=== PATIENT | female | born 1955 | race African-American/Black ===

== ENCOUNTER 2023-12-14 09:12 | Emergency (ER) | payer BC ==
[~2023-12-14] VITALS: Ht 170.2 cm; Wt 62.6 kg
[2023-12-14] MEDS ORDERED: HYDR12.55 PO (10:07)
[2023-12-14] MEDS ORDERED: AMLO-213 PO (10:07)
[2023-12-14 10:30] LABS: BASOPHILS % (AUTO) 0.5 % (0.0-2.0); EOSINOPHILS # (AUTO) 0.1 K/uL (0.0-0.7); EOSINOPHILS % (AUTO) 1.3 % (0.0-6.0); HEMATOCRIT 43 % (33-45); HEMOGLOBIN 14.2 g/dL (11.5-14.8); LYMPHOCYTES # (AUTO) 1.9 K/uL (0.8-4.8); LYMPHOCYTES % (AUTO) 34.7 % (20.0-44.0); MEAN CORPUSCULAR HEMOGLOBIN 30 PG (26.0-33.0); MEAN CORPUSCULAR HGB CONC 33 g/dl (31.0-36.0); MEAN CORPUSCULAR VOLUME 90 fL (82-100); MONOCYTES # (AUTO) 0.5 K/uL (0.1-1.30); MONOCYTES % (AUTO) 8.7 % (2.0-12.0); NEUTROPHILS # (AUTO) 3.1 K/uL (1.8-8.9); NEUTROPHILS % (AUTO) 54.8 % (43.0-81.0); PLATELET COUNT (AUTO) 177 K/uL (150-450); RED BLOOD CELL COUNT(AUTO) 4.72 MIL/uL (4.0-5.2); RED CELL DISTRIBUTION WIDTH 13.8 % (11.5-15.0); WHITE BLOOD COUNT (AUTO) 5.6 K/uL (4.3-11.0)
[2023-12-14 10:37] LABS: CALCIUM, SERUM 9.9 mg/dL (8.5-10.1); CREATININE 0.9 mg/dL (0.6-1.3); POTASSIUM 3.9 mmol/L (3.5-5.1)
[2023-12-14 10:44] LABS: ALBUMIN 2.8 g/dL (3.4-5.0); BILIRUBIN,TOTAL 0.6 mg/dL (0.2-1.0); TOTAL PROTEIN, SERUM 6.9 g/dL (6.4-8.2)
[2023-12-14 11:45] VITALS: BP 185/90; TEMP 97.9; O2SAT 98
== END 2023-12-14 11:30 | disposition home or self-care (01) ==
LOC: ER 09:14
DX: I10 Essential (primary) hypertension (principal)
CPT/HCPCS: 36415; 80053-TC; 85025-TC

== ENCOUNTER 2025-02-17 09:22 | Emergency (ER) | payer BC ==
[~2025-02-17] VITALS: Ht 170.2 cm; Wt 72.6 kg
[~2025-02-17 09:22] MED LIST: AMLO-213 PO; HYDR12.55 PO
[2025-02-17] MEDS ORDERED: NAPR-1164 PO (10:06)
[2025-02-17 10:21] VITALS: BP 199/99; TEMP 98.4; O2SAT 98
== END 2025-02-17 10:21 | disposition home or self-care (01) ==
LOC: ER 09:36
DX: M17.11 Unilateral primary osteoarthritis, right knee (principal); I10 Essential (primary) hypertension; Z79.899 Other long term (current) drug therapy
CPT/HCPCS: 73564-TC